=== PATIENT | male | born 1970 | race Two or more races ===

== ENCOUNTER 2016-09-03 19:03 | Emergency (ER) | payer SELFPAY ==
[2016-09-03] MEDS ORDERED: AUGMENTIN 875-1 EAC2 PO (19:50)
[2016-09-03] MEDS ORDERED: CIPRO HC OTIC S10 M1 RIGHT EAR (19:50)
== END 2016-09-03 20:10 ==
LOC: EDMED 19:03
DX: H60.91 Unspecified otitis externa, right ear (principal); I10 Essential (primary) hypertension